=== PATIENT | female | born 1985 | race Hispanic/Latino ===

== ENCOUNTER 2017-11-23 19:01 | Emergency (ER) | payer OTHER ==
[~2017-11-23] VITALS: Ht 154.9 cm; Wt 56.8 kg
[2017-11-23] MEDS ORDERED: LABETALOL HCL100 MG PO (20:12)
[2017-11-23] MEDS ORDERED: LOVENOX60 MG/0.6 SC (20:12)
[2017-11-23] MEDS ORDERED: ASPIR 8181 MG PO (20:12)
[2017-11-23 22:15] VITALS: BP 150/97
== END 2017-11-23 22:13 | disposition home or self-care (01) ==
LOC: FSED 19:01
DX: O26.851 Spotting complicating pregnancy, first trimester (principal); O44.11 Complete placenta previa with hemorrhage, first trimester; I10 Essential (primary) hypertension
CPT/HCPCS: 76801; 76817; 81003; 87086; 99283